=== PATIENT | female | born 1980 | race Caucasian/White ===

== ENCOUNTER 2018-06-26 11:57 | Outpatient (CLI) | payer OTHER ==
[2018-06-26 18:11] LABS: BASOPHILS # (AUTO) 0.1 10^3/uL (0.0-0.1); BASOPHILS % (AUTO) 0.5 %; EOSINOPHILS # (AUTO) 0.1 10^3/uL (0.0-0.7); EOSINOPHILS % (AUTO) 0.6 %; LYMPHOCYTES # (AUTO) 1.7 10^3/uL (1.5-3.5); LYMPHOCYTES % (AUTO) 16.4 %; MEAN CORPUSCULAR HEMOGLOBIN 30.3 pg (27.0-31.0); MEAN CORPUSCULAR HGB CONC 33.4 g/dL (32.0-36.0); MEAN CORPUSCULAR VOLUME 90.7 fL (81.0-99.0); MEAN PLATELET VOLUME 10.7 fL (7.9-10.8); MONOCYTES # (AUTO) 0.6 10^3/uL (0.0-1.0); NEUTROPHILS # (AUTO) 7.9 10^3/uL (1.5-6.6); NEUTROPHILS % (AUTO) 76.5 %; PLT - PLATELET COUNT 348 10^3/uL (130-450); RED BLOOD COUNT 3.63 10^6/uL (4.20-5.40); WHITE BLOOD COUNT 10.4 x10^3/uL (4.8-10.8)
[2018-06-26 18:43] LABS: THYROID STIMULATING HORMONE 1.04 uIU/mL (0.34-5.60)
[2018-06-26 18:45] LABS: FREE T4 (FREE THYROXINE) 0.55 ng/dL (0.58-1.64)
[2018-06-26 18:50] LABS: FERRITIN 9.3 ng/mL (11.0-306.8)
[2018-06-26 19:32] LABS: % IRON SATURATION 15 % (20-50); IRON 81 ug/dL (28-170); TOTAL IRON BINDING CAPACITY 553 ug/dL (250-450); TRANSFERRIN 395 mg/dL (192-382)
== END 2018-06-26 23:59 | disposition home or self-care (01) ==
LOC: LAB.F 11:57
PROVIDERS: ATTEND Physician Assistant Medical
DX: E56.9 Vitamin deficiency, unspecified (principal); E06.3 Autoimmune thyroiditis; D50.9 Iron deficiency anemia, unspecified
CPT/HCPCS: 36415; 82306; 82728; 83540; 84439; 84443; 84466; 84481; 85025